=== PATIENT | female | born 1995 | race Caucasian/White ===

== ENCOUNTER → 2025-05-03 16:26 | Outpatient (CLI) | payer OTHER, SELFPAY ==
[2025-05-03 17:07] LABS: Add Manual Diff / Slide Review NO; Hematocrit 35.1 % (36-46); Hemoglobin 12.1 g/dL (12.0-16.0); Lymphocytes Absolute Auto 1400 /uL (1100-4500); Mean Corpuscular HGB Conc 34.5 % (30-36); Mean Corpuscular Hemoglobin 30.0 PG (26-34); Mean Corpuscular Volume 86.9 fL (80-100); Platelet Count 212 X10^3/uL (150-400)
[2025-05-03 17:42] LABS: Natera Collection Specimen Collected
[2025-05-04 17:40] LABS: Hepatitis B Surface Antigen NEGATIVE s/c (NEGATIVE)
[2025-05-04 17:57] LABS: HIV 1 & 2 Ab/Ag 4th Gen Combo NEGATIVE (NEGATIVE); Hep C Virus Ab w/Reflex Quant NEGATIVE s/c (NEGATIVE)
== END ==
PROVIDERS: PCP Nurse Practitioner Family; Referring Provider Obstetrics & Gynecology; Visit Provider Obstetrics & Gynecology
DX: O09.899 Supervision of other high risk pregnancies, unspecified trimester (principal); Z34.02 Encounter for supervision of normal first pregnancy, second trimester
CPT/HCPCS: 36415; 80055; 86787; 86803; 86850; 86900; 86901; 87086; 87389

== ENCOUNTER → 2025-06-17 12:03 | Outpatient (CLI) | payer OTHER, SELFPAY ==
[2025-06-19 16:09] LABS: Gest Age on Col Date 18.0 weeks (.); OSBR Risk 1IN 10000 (.)
== END ==
PROVIDERS: PCP Nurse Practitioner Family; Referring Provider Obstetrics & Gynecology; Visit Provider Obstetrics & Gynecology
DX: Z36.0 Encounter for antenatal screening for chromosomal anomalies (principal)
CPT/HCPCS: 36415; 82105

== ENCOUNTER → 2025-07-03 07:44 | Outpatient (CLI) | payer OTHER, SELFPAY ==
--- NOTE | 2025-07-03 07:46 | DI.US.S_ITS ---
PROCEDURE: US OB >= 14 WEEKS FETUS INDICATIONS: 20 weeks anatomy scan OUTSIDE/PRIOR DATING DATA: Last menstrual period (LMP): 02/11/2025. LMP-based estimated date of delivery ([place]SEA): 11/18/2025. First dating scan (date and location): 04/12/2025 Estimated date of delivery ([place]) from first dating scan: 11/17/2025. The calculations are made using the working CHELSEA of 11/18/2025. TECHNIQUE: Real-time scanning was performed of the fetus, with image documentation and biometric measurements. Endovaginal scanning: Not performed. COMPARISON: [facility], , OB <= 14 WEEKS FETUS, 04/12/2025, 14:39. FINDINGS: General: A single living intrauterine gestation is present. Presentation: Breech Placenta: Placental position is anterior, without previa. Amniotic fluid index: 16.6 cm, normal range is 5-24 cm. Single deepest vertical pocket is 5.8 cm. heart rate: 152 beats per minute. Maternal cervical canal: Closed and measures 3.9 cm long. Normal lower limit is 2.5 cm. biometrics: Biparietal diameter: 4.8 cm, 20 weeks, 4 days. Head circumference: 17.1 cm, 19 weeks, 5 days. Abdominal circumference: 16.1 cm, 21 weeks, 1 day. Femur length: 3.2 cm, 19 weeks, 6 days. Clinically estimated gestational age: 20 weeks, 2 days Composite gestational age from present scan: 20 weeks, 2 days. Estimated weight and percentile: 357 g, 57%. Anatomic survey: Neuro: Ventricles are non-dilated at less than 10 mm. Cisterna magna is normal at 3-11 mm. Cerebellum is normal in size and morphology. Nuchal skin fold: Normal at less than 6 mm between 14-21 weeks gestational age. Face: Nose and lips, facial profile are normal. Spine: No evidence for spina bifida. Heart: 4-chambered heart is present, with normal ventricular outflow tracts. Diaphragm: Diaphragm is intact. Stomach: Left-sided stomach is present. Kidneys: No hydronephrosis. Normal is less than 5 mm in 2nd trimester, less than 7 mm in 3rd trimester. Cord: 3-vessel cord has orthotopic insertion. Bladder: Normal in size. Extremities: All 4 extremities identified. IMPRESSION: 1. Single live intrauterine gestation with fetus in breech presentation. heart rate is 152 beats per minute. Normal LANG at 16.6 cm. 2. Normal growth. Estimated weight is at 57%. 3. Normal anatomic survey. We strive to produce accurate, complete, and clear reports of imaging services. To assist us in improving patient care, this report was composed using standard report templates and voice recognition software. Therefore, it may contain abnormal punctuation, insertions and/or omissions. Occasional wrong-word or sound-alike substitutions may occur. Though we review the report and make efforts to correct it, we do recommend that the report be read carefully in proper context to recognize any text inaccuracies. Dictated by: Andrea Stewart M.D. on 07/03/2025 at 10:25 Approved by: Andrea Stewart M.D. on 07/03/2025 at 10:28
== END ==
LOC: US 07:45
PROVIDERS: PCP Nurse Practitioner Family; Referring Provider Nurse Practitioner Family; Visit Provider Obstetrics & Gynecology
DX: Z36.0 Encounter for antenatal screening for chromosomal anomalies (principal); Z3A.20 20 weeks gestation of pregnancy
CPT/HCPCS: 76811